=== PATIENT | female | born 1980 ===

== ENCOUNTER → 2017-03-17 | Outpatient (CLI) | payer OTHER ==
[~2017-03-17] MED LIST: FOLIC ACID 11 MG/TA1 PO; MOTRIN 600600 MG/TAB PO; PERCOCET 325 MG1 TA2 PO; PRENATAL1 TA3 PO; ZOFRAN ODT4 MG PO
[2017-03-17 13:48] LABS: ALBUMIN 4.6 gm/dL (3.5-5.0)
[2017-03-17 14:03] LABS: BILIRUBIN UNCONJUGATED 1.5 mg/dL (0.0-1.1); BILIRUBIN,DIRECT 0.3 mg/dL (0.0-0.4); BILIRUBIN,TOTAL 1.8 mg/dL (0.0-1.0)
[2017-03-17 23:30] LABS: HEPATITIS B SURFACE ANTIBODY 610.5 (()); HEPATITIS B SURFACE ANTIGEN Negative (())
== END ==
LOC: COL.LAB 11:17
DX: B19.10 Unspecified viral hepatitis B without hepatic coma (principal)